=== PATIENT | male | born 1985 | race Caucasian/White ===

== ENCOUNTER → 2019-08-18 | Outpatient (REF) ==
--- NOTE | 2019-08-18 12:36 | Diagnostic Imaging Report ---
INDICATION: Back pain after fall. 3 views were obtained FINDINGS: The alignment of the lumbar spine is normal. Vertebral body heights are well-maintained. No spondylolysis or spondylolisthesis. No fractures are identified IMPRESSION: Unremarkable lumbar spine series Dictated by: Dictated on workstation # [id number]
== END | disposition home or self-care (01) ==
LOC: OCC 11:37
PROVIDERS: ATTEND Family Medicine
DX: Z01.818 Encounter for other preprocedural examination (principal)
CPT/HCPCS: 72100